=== PATIENT | female | born 1980 | race Caucasian/White ===

== ENCOUNTER → 2018-10-06 | Outpatient (CLI) | payer OTHER ==
[~2018-10-06] MED LIST: GASTROGRAFIN SOLUTION 30ML (Q9963) As Ordered ONE; ISOVUE-370 76% 100ML VIAL (Q9967) As Ordered ONE
--- NOTE | 2018-10-07 07:29 | REP ---
CT ABDOMEN AND PELVIS WITH ORAL CONTRAST WITH AND WITHOUT IV CONTRAST: TECHNIQUE: Axial noncontrast images through the abdomen followed by contrast-enhanced images through the abdomen and pelvis using 100 mL Isovue 370 intravenous contrast material, with coronal and sagittal reformations. Visualized lung bases are clear. Liver, spleen, adrenals, pancreas, and kidneys demonstrate no mass. However, the liver and spleen appear slightly enlarged. Tiny subcentimeter cyst is seen in the anterior segment of the right lobe of the liver. There is no hydronephrosis. There is no abdominal aortic aneurysm. There is no adenopathy. There is no free air or free fluid. There is no bowel wall thickening. There is no bowel obstruction. No pelvic mass is seen. Urinary bladder is not optimally distended and not optimally evaluated. IMPRESSION: Very mild enlargement of the liver and spleen. Liver measures approximately 17.1 cm in length and spleen 14.1 cm in length. There is a tiny subcentimeter cyst peripherally in the right lobe of the liver. No other significant abnormality is seen in the abdomen or pelvis. Electronically Signed by Ravindra Gonzáles MD 10/07/2018 09:21 A
== END ==
LOC: M RAD 16:07
PROVIDERS: ATTEND Family Medicine
DX: R16.2 Hepatomegaly with splenomegaly, not elsewhere classified (principal)
CPT/HCPCS: 74178; Q9963; Q9967

== ENCOUNTER → 2018-11-02 | Outpatient (REF) | payer OTHER | LOC: M LAB REF 12:57 | PROVIDERS: ATTEND Internal Medicine Gastroenterology | DX: R14.0 Abdominal distension (gaseous) (principal) ==

== ENCOUNTER → 2019-01-27 | Outpatient (CLI) | payer OTHER ==
--- NOTE | 2019-01-27 12:30 | REP ---
CT of the abdomen and pelvis without and with IV contrast and with bowel contrast for evaluation of liver and spleen size: Comparison is 10/06/2018. On the comparison study, the liver measured 17.1 cm length and the spleen measures 14.1 cm length. This was compatible with mild enlargement of the liver and spleen. On the study today the liver measures 15 cm craniocaudad length in the midclavicular line. This is borderline enlarged. On the study today the spleen measures 14 cm craniocaudad length. This is borderline enlarged. The hepatic parenchyma is homogeneous. The splenic parenchyma is homogeneous. The density of the hepatic and splenic parenchyma is unremarkable. There is a tiny 6 mm subcapsular cyst laterally in the right lobe of the liver, unchanged. The gallbladder and pancreas are unremarkable. The adrenals and kidneys are unremarkable. The abdominal aorta is unremarkable. There is no periaortic adenopathy or mass. The bowel and mesentery are unremarkable. Pelvis: The bladder, uterus and adnexa are unremarkable except for a left adnexal 18 mm follicle. There is no pelvic ascites or adenopathy. The bladder is unremarkable. Impression: Hepatic and splenic size as discussed. 18 mm left adnexal follicle. Otherwise, negative abdomen/pelvis CT. Electronically Signed by Ravindra Momin MD 01/27/2019 12:21 P
== END ==
LOC: M RAD 09:05
PROVIDERS: ATTEND Family Medicine
DX: R16.2 Hepatomegaly with splenomegaly, not elsewhere classified (principal); K76.89 Other specified diseases of liver
CPT/HCPCS: 74178; Q9963; Q9967

== ENCOUNTER → 2019-03-30 | Outpatient (CLI) | payer OTHER ==
[~2019-03-30] MED LIST changes: +CO Q200C10 PO; -GASTROGRAFIN SOLUTION 30ML (Q9963) As Ordered ONE; -ISOVUE-370 76% 100ML VIAL (Q9967) As Ordered ONE; +MULTCAP PO; +SPIR100T3 PO; +SYNT25TA PO
--- NOTE | 2019-03-30 16:00 | REP ---
PET/CT: History: Abnormal findings on diagnostic imaging of the liver. Comparisons: Comparison CT studies of the abdomen and pelvis January 27, 2019 and October 06, 2018. TECHNIQUE: 59 minutes following the intravenous injection of a 8.85 mCi dose of F-18 FDG, three-dimensional PET scintigraphy is acquired from the skull base to the proximal thighs. Triplanar noncontrast CT scanning is acquired through the same anatomic range for attenuation correction, and image registration with scan parameters optimized to minimize radiation exposure to the patient. PET scintigraphy and CT datasets were fused and displayed on a workstation with multiplanar and projection display capability. PET/CT Findings: Head and neck soft tissues are unremarkable. There is no abnormal hypermetabolic uptake within the thorax. No axillary hypermetabolic uptake. No abnormal pulmonary parenchymal uptake is seen. There is no visible lung nodule or mass lesion. No liver mass lesion is observed. No abnormal hepatic or splenic hypermetabolic uptake is seen. Normal distribution of tracer is seen in the abdomen and pelvis. No abnormal abdominal or pelvic uptake. Impression: Negative PET scintigraphy. No abnormal uptake is seen in the liver or spleen or elsewhere. Electronically Signed by Souleymane Bosch MD 03/30/2019 05:42 P
== END ==
LOC: M PLARAD 09:37
PROVIDERS: ATTEND Internal Medicine Medical Oncology
DX: R93.2 Abnormal findings on diagnostic imaging of liver and biliary tract (principal)